=== PATIENT | male | born 1980 ===

== ENCOUNTER 2018-10-24 11:50 | Outpatient (CLI) | payer OTHER ==
--- NOTE | 2018-10-24 14:51 | ULT ---
SCROTAL ULTRASOUND WITH DOPLER: Date: 10/24/18 PROVIDED CLINICAL HISTORY: Palpable mass right groin. FINDINGS: The right testicle measures about 4.4 x 2.4 x 3.6 cm and demonstrates a normal Floyd scale sonographic appearance. The right epididymal head demonstrates a small simple cyst, but appears otherwise normal . The left testicle measures approximately 5.0 x 2.5 x 3.6 cm and demonstrates a normal Floyd scale sono graphic appearance. Small left epididymal head cyst. There is no evidence for hydrocele. Color Doppler and spectral analysis of the testicular waveforms d emonstrates normal flow bilaterally. Limited sonographic interrogation of the right groin in the region of palpable concern demonstrates a tubular area of diminished echogenicity demonstrating no increased internal vascularity, appearing a symmetric with respect to the contralateral groin. IMPRESSION: 1. Normal sonographic appearance to the testicles. 2. Tubular hypoechoic structure in the region of palpable concern in the right groin, the sonographi c appearance of which is nonspecific. This may reflect enlargement of the right spermatic cord. POS: OFF
== END 2018-10-24 11:51 | disposition home or self-care (01) ==
LOC: BICULT 11:50
PROVIDERS: ATTEND Family Medicine
DX: N50.89 Other specified disorders of the male genital organs (principal); R93.89 Abnormal findings on diagnostic imaging of other specified body structures
CPT/HCPCS: 76870; 93976